=== PATIENT | male | born 1945 | race Caucasian/White ===

== ENCOUNTER → 2016-10-12 | Day surgery (SDC) | payer MEDICARE, MEDICAID ==
--- NOTE | 2016-10-11 19:15 | Opthalmology H&P ---
Ophthalmology H&P H&P Chief Complaint: decreased vision in right eye, poorly controlled glaucoma HPI Vision Affects Ability to: read, drive Past Ocular History: glaucoma HPI Narrative The patient is 71 y/o Male with painless progressive central and peripheral vision loss with difficulty in reading and driving due to visually significant cataract and uncontrolled glaucoma with maximum medication right eye. Exam Visual Acuity: BAT 20/40 Tension: 18 with Lumigan, Alphagan, Meclizine Eye Exam: normal OU: corneas, external exam, findings: anterior chambers - shallow with PAS superiorly, fundus exam - 0.7 C/D ratio, fine macular drusen, lens - 2+ CC, 1+ NSC Assessment/Plan Treatment Plan: cataract extraction w/ lens implant, glaucoma filtration surgery Goals of Treatment: improvement of vision, lowering of intraocular pressure, enhance quality of life Attestation Attestation The risks and benefits of the surgery as well as alternative procedures were explained to the patient in detail. Patricia Collier M.D. Oct 11, 2016 19:15
--- NOTE | 2016-10-11 19:21 | Pre-Procedure Note/Attestation ---
Pre-Procedure Note/Attestation Complete Prior to Procedure Planned Procedure: right Procedure Narrative: Cataract extraction and IOL insertion Glaucoma surgery with Shunt placement Tissue reinforcement placement Indications for Procedure Pre-Operative Diagnosis: Uncontrolled narrow angle glaucoma Visually significant cataract Attestation I attest that I discussed the nature of the procedure; its benefits; risks and complications; and alternatives (and the risks and benefits of such alternatives ), prior to the procedure, with the patient (or the patient's legal customer operations representative). I attest that, if there was a reasonable possibility of needing a blood transfusion, the patient (or the patient's legal customer operations representative) was given the [facility] standardized written summary, pursuant to the [place] Blood Safety Act ([place] Health and Safety Code # 1645, as amended). I attest that I re-evaluated the patient just prior to the surgery and that there has been no change in the patient's H&P, except as documented below: I have told the patient about the alternative surgical procedure ( trabeculectomy with MMC) and it's advantage and disadvantages. The patient has chosen to have shunt surgery. He was told about risks of ptosis after surgery besides the usual risks for hypotony, endophthalmitis and so on. He has chosen to proceed with combine cataract and shunt surgery. Patricia Collier M.D. Oct 11, 2016 19:21
[~2016-10-12] VITALS: Ht 152.4 cm; Wt 84.4 kg
[2016-10-12] VITALS (10 sets, daily range): BP systolic 139–152; BP diastolic 78–91
[~2016-10-12] MED LIST: Akten 3.5% 1ml Btl ONE; BRIMONIDINE TART5 ML RIGHT EYE; BSS 15ml BTL ONE; BSS 500ml btl ONE; Carbachol 0.01% Op Soln 1.5ml vial ONE; DEXAMETHASONE RIGHT EYE ONE; Dexamethasone Inj PF*Surgery use* 10 MG/ML VIAL IM ONE; Diclofenac Sod 0.1% Op Soln ONE; DiphenhydrAMINE 50mg/ml Inj IVP PRN; Gatifloxacin Opth Solution 0.5% ONE; Healon Duet Dual Pack ONE; Kenalog-40 1ml Vial ONE; LR 1000ml 1,000 ML IVLG SCH; LR 1000ml ONE; Labetalol 5mg/ml 20ml vial IV PRN; Lidocaine 1% MPF 10mg/ml 5ml ONE; Lidocaine 2% 20mg/ml/Epi 0.005mg/ml 20ml vial ONE; Maxitrol Opth Oint 3.5gm ONE; Midazolam 2mg/2ml Inj ONE; NS Irrig 1000ml ONE; Phenylephrine 10% Opth Soln 5ml ONE; Povidone-Iodine 5% opth solution ONE; Sodium Hyaluronate 10 mg/ml 0.85ml ONE; Sterile Water Irrig 1000ml IRRIG ONE; Tropicamide 1% Opth Soln ONE; acetaZOLAMIDE 125mg tab ORAL ONE; fentaNYL 100 mcg/2 mL IV ONE
--- NOTE | 2016-10-12 09:12 | Anethesia Preoperative Eval ---
Anesthesia Pre-op PMH/ROS General Date of Evaluation: Oct 12, 2016 Anesthesiologist: Prosper ASA Score: ASA 2 Mallampati Score Class I : Soft palate, uvula, fauces, pillars visible Class II: Soft palate, uvula, fauces visible Class III: Soft palate, base of uvula visible Class IV: Only hard plate visible Mallampati Classification: Class II Surgeon: Amira Diagnosis: Right cataract, glaucoma Surgical Procedure: Right cataract extraction with Iol, ahmed valve Anesthesia History: none Family History: no anesthesia problems Allergies: Coded Allergies: No Known Allergies (Unverified , 10/10/16) Medications: see eMAR Past Medical History Cardiovascular: Denies: CAD, HTN, PA, arrhythmia, other, valve dz Pulmonary: Denies: COPD, SRINIVASA, asthma, other Gastrointestinal/Genitourinary: Denies: CRI, ESRD, GERD, other Neurologic/Psychiatric: Denies: CVA, TIA, dementia, depression/anxiety, other Endocrine: Denies: DM, hypothyroidism, other, steroids HEENT: Reports: cataract (L), cataract (R), glaucoma - bilateral, Denies: [place] (L), [place] (R), other Hematology/Immune: Reports: anemia, Denies: DVT, bleeding disorder, other Musculoskeletal/Integumentary: Reports: OA, Denies: DDD, DJD, RA, edema, other PSxH Narrative: Denies Anesthesia Pre-op Phys. Exam Physician Exam see chart Constitutional: NAD Cardiovascular: RRR Respiratory: CTA Airway Exam Mallampati Score: Class II MO: full ROM: full Anesthesia Pre-op A/P Labs see chart Studies Pre-op Studies: EKG - sr Risk Assessment & Plan Assessment: ASA II Plan: MAC Status Change Before Surgery: No Pre-Antibiotics Drug: N/A GARRY MALIK M.D. Oct 12, 2016 09:12
[2016-10-12] MEDS: Diclofenac Sod 0.1% Op Soln RIGHT EYE SCH ×3 (09:29→09:44)
[2016-10-12] MEDS: Akten 3.5% 1ml Btl RIGHT EYE SCH ×3 (09:29→09:44)
[2016-10-12] MEDS: Phenylephrine 10% Opth Soln 5ml RIGHT EYE SCH ×3 (09:29→09:45)
[2016-10-12] MEDS: Tropicamide 1% Opth Soln RIGHT EYE SCH ×3 (09:29→09:45)
[2016-10-12] MEDS: Gatifloxacin Opth Solution 0.5% RIGHT EYE SCH ×3 (09:30→09:45)
--- NOTE | 2016-10-12 09:34 | 48 Hour Post Anesthesia Eval ---
Post Anesthesia Evaluation Procedure: Right cataract extraction with IOL, Ahmed valve Date of Evaluation: Oct 12, 2016 Blood Pressure Systolic: 148 0: 89 Pulse Rate: 71 Respiratory Rate: 17 O2 Sat by Pulse Oximetry: 96 Airway: patent Nausea: No Vomiting: No Pain Intensity: 0 Hydration Status: adequate Cardiopulmonary Status: at baseline Mental Status/LOC: patient returned to baseline Post-Anesthesia Complications: 0 Follow-up care needed: ready to discharge GARRY MALIK M.D. Oct 12, 2016 09:34
--- NOTE | 2016-10-12 09:34 | Immediate Post-Op Evaluation ---
Immediate Post-Op Evalulation Immediate Post-Op Evalulation Procedure: Right cataract extraction with IOL, Ahmed valve Date of Evaluation: Oct 12, 2016 Time of Evaluation: 12:49 IV Fluids: 600 Blood Products: 0 Estimated Blood Loss: 0 Urinary Output: 0 Blood Pressure Systolic: 152 Blood Pressure Diastolic: 91 Pulse Rate: 65 Respiratory Rate: 15 O2 Sat by Pulse Oximetry: 98 Temperature (Fahrenheit): 98.1 Pain Score (1-10): 0 Nausea: No Vomiting: No Complications 0 Patient Status: awake, reacts, patent, none Hydration Status: adequate Drug: N/A GARRY MALIK M.D. Oct 12, 2016 09:33
--- NOTE | 2016-10-12 12:52 | Operative Note - PDOC ---
Operative Note Operative Note Date of Operation/Procedure: Oct 12, 2016 Chief Complaint: blurrd vision, uncontrolled glaucoma Pre-op Diagnosis: Uncontrolled narrow angle glaucoma Visually significant cataract Procedure: Cataract extraction Anterior vitrectomy Peripheral iridotomy IOl insertion Post-op Diagnosis: Dens cataract with adhesions to the capsule, Floppy Iris Operative Findings: consistent w/pre-op dx studies - Adhesion of lens to cpule , floppy iris Surgeon: Dr. Collier Anesthesiologist: Dr. Garsia Anesthesia: MAC Specimen: none Complications: yes Condition: stable Estimated Blood Loss: none Drains: none Implant(s) used?: Yes - [id number] 24.50 IOL Indications for Procedure viually significant cataract, uncontrolled glaucoma Description of Procedure see separate op note Patricia Collier M.D. Oct 12, 2016 12:51
--- NOTE | 2016-10-12 12:57 | Discharge Summary ---
Discharge Summary Hospital Course Date of Admission 10/12/16 Date of Discharge 10/12/16 Admitting Diagnosis Visually significant cataract Uncontrolled glaucoma AISSATOU Scott is a 71 year old male who was admitted on for Cat Rt Eye/ Glaucoma Procedures Cataract extraction Anterior vitrectomy Sulcus IOL insertion Peripheral iridectomy Hospital Course stable Discharge Condition Upon Discharge: stable Discharge Disposition Patient was discharged to home Discharge Diagnoses: Discharge Instructions Discharge Instructions Follow up with: Dr. Collier the next day Call MD/Return to Hospital if: severe pain Services Upon Discharge: other Diet: regular Activity: light activity Special Instructions No straining, lifting, heavy lifting Do not rub the eye Keep the eye patch For Surgical Patients Clean and Dry: surgical site Dressing Care: keep dry and clean May shower: No Contact your physician for: Patricia Qureshi M.D. Oct 12, 2016 12:57
--- NOTE | 2016-10-12 17:55 | Operative Note - PDOC ---
Opthamology Op Report Surgical Report PREPROCEDURE DIAGNOSIS: Visually significant cataract, right eye Uncontrolled glaucoma, right eye POSTPROCEDURE DIAGNOSIS: Visually significant cataract, right eye Uncontrolled glaucoma, right eye Floppy iris syndrome PROCEDURE: Complex Phacoemulsification with Intra-ocular lens placement, right eye Anterior vitrectomy, right eye Peripheral iridotomy, right eye SURGEON: Patricia Collier MD ANESTHESIA: MAC, local anesthesia IMPLANT(S): TAVON IOL: [id number], Power + 24.50 Serial #[id number] DRAINS: None SPECIMEN: None ESTIMATED BLOOD LOSS: None BLOOD PRODUCTS ADMINISTERED: None COMPLICATIONS: vitreous loss FINDINGS: Opacified lens, floppy iris INDICATIONS FOR PROCEDURE: This patient is 71 year old male with Visually significant cataract, uncontrolled glaucoma and floppy iris who presented with blurred vision and high IOP despite maximum tolerable medications. Past medical history is significant for BPH. Past surgical history is significant for blepharoplasty both upper eyelids. The patient is using Lumigan , Alphagan, and Meclizine. There is no known allergy. There is no history of glaucoma or any other hereditary ophthalmic disease in the family. Review of system is negative except for the blurred vision in the affected eye. VA in the operated eye 20/25 BAT to 20/40, IOP18 mmHg. Pupils are reactive with + RAPD in the right eye. Slit lamp exam: cornea is clear, shallow anterior chamber, 2+ cortical cataract, 2+ nuclear sclerosis cataract, there is no psudoexfoliation present at the pupillary margin or anterior lens capsule. Gonioscopy there is narrow angle with 100 degree superior PAS at the site of prior laser PI. On funds exam cup/disc ratio is ).7, macula shows dull foveal reflex, retina is attached. Risk, benefit and alternative to cataract surgery was explained to the patient, who agreed to proceed with the procedure. The informed consent was signed by the patient. DESCRIPTION OF PROCEDURE: The patient was seen by me along with anesthesia team in the pre op area and the surgical site was marked and confirmed. Anesthetic drops along with dilating drops was instilled in surgical eye in the pre op. The patient was then brought back to the operating ignacio placed in supine position. The eye was prepped with Betadine 5% and draped in sterile manner for the ophthalmic surgery. An eyelid speculum was was placed to keep the eyelid open. Paracentesis wound was made superiorly and inferiorly though clear cornea near the limbus using 1.0mm side-port blade. Preservative free Lidocaine 1% was injected into the anterior chamber through the paracentesis wound. The anterior chamber was inflated with viscoelastic (viscoat). A keratom blade was used to make a bi- planar, shelved, clear corneal incision, starting at temporal limbus and then tunneling through clear cornea to enter the anterior chamber. A circular curvilinear continue capsulorrhexis was initiated by cystotom and continued with utrata forceps. The capsular flap then was removed. Hydrodissection and hydrodelineation was performed using BSS until the lens was hardly rotatable. The lens nucleus was then removed using the phacoemulsification handpiece. The residual cortex was removed with the bimanual irrigation/aspiration handpieces. The AC was shallowing during the procedure and the zonular bag seemed week nasally. some vitreous was seen nasally. At this point Healon was injected to the side of zonular weakening. Kenalog was used to stain the prolapsed vitreous. Anterior vitrectomy was performed on cut I/A, until no vitreous was seen in the AC anymore. At this point the capsular bag and anterior chamber were inflated with viscoelastic, and the IOL was inserted into the sulcus.Using vitrectomy handpiece on the aspiration mode, Healon was removed from the anterior chamber. Miostat was injected in thp the AC and pupil was constricted with no pulling or irregularity. surgical PI was performed using Colibri through the superior paracentesis. Main wound and inferior paracentesis wound was sutured by 10.0 nylon. The superior paracentesis wound was hydrated by BSS. Intracameral dexamethasone was injected into the AC. The speculum was removed. Vigamox drops and Sterile antibiotic/steroid ointment was applied to the eye. A cotton patch and clear shield were placed over the operative eye. The patient was transferred to the recovery room in stable condition. MD Fernando Sanchez [id number] Patricia Collier M.D. Oct 12, 2016 17:55
== END | disposition home or self-care (01) ==
LOC: SUR 08:43
DX: H25.11 Age-related nuclear cataract, right eye (principal); H25.011 Cortical age-related cataract, right eye; H40.20X0 Unspecified primary angle-closure glaucoma, stage unspecified; H21.81 Floppy iris syndrome; N40.0 Benign prostatic hyperplasia without lower urinary tract symptoms; K21.9 Gastro-esophageal reflux disease without esophagitis; K59.00 Constipation, unspecified; D64.9 Anemia, unspecified; M19.90 Unspecified osteoarthritis, unspecified site
CPT/HCPCS: 66984; J1200; J2250; J3010; J3301; J7120; V2632; 94003; 94150